=== PATIENT | female | born 1965 | race Two or more races ===

== ENCOUNTER 2016-09-15 15:16 | Emergency (ER) | payer OTHER ==
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
== END 2016-09-15 19:53 | disposition home or self-care (01) ==
LOC: CFTX 15:16 → CED 15:16 → CFTX 17:08
DX: S16.1XXA Strain of muscle, fascia and tendon at neck level, initial encounter (principal); S39.012A Strain of muscle, fascia and tendon of lower back, initial encounter; V49.40XA Driver injured in collision with unspecified motor vehicles in traffic accident, initial encounter
CPT/HCPCS: 70450; 72100; 72125; 96372; 99284; J1885